=== PATIENT | male | born 1985 | race African-American/Black ===

== ENCOUNTER 2019-08-20 00:47 | Observation (INO) | payer SELFPAY ==
[2019-08-20] MEDS ORDERED: Aspirin 325 MG TAB ONE (01:03)
[2019-08-20] MEDS ORDERED: Nitroglycerin 0.4 MG TAB 1 EACH ONE (01:12)
[2019-08-20 01:13] LABS: #Basophils 0.2 thou/uL (0.0-0.2); #Eosinphils 0.2 thou/uL (0.0-0.7); #Lymphocytes 4.2 thou/uL (1.20-3.40); #Monocytes 0.7 thou/uL (0.11-0.59); #Neutrophils 4.1 thou/uL (1.40-6.50); %Basophils 2.3 % (0.0-1.0); %Eosinophils 2.1 % (0.0-10.0); %Lymphocytes 44.6 % (21.0-51.0); %Monocytes 7.1 % (0.0-10.0); Hemoglobin 15.5 g/dL (14.0-18.0); Mean Corpuscular HGB CONC 34.4 g/dL (32.0-36.0); Mean Corpuscular Hemoglobin 31.1 pg (27.0-31.0); Mean Corpuscular Volume 90.5 fL (78.0-98.0); Mean Platelet Volume 9.1 fL (7.4-10.4); Platelet Count 209 thou/uL (130-400); RBC Distribution Width 11.9 % (11.5-14.5); White Blood Cell (WBC) Count 9.4 thou/uL (4.8-10.8)
[2019-08-20 01:34] LABS: ALT (SGPT) 18 U/L (8-55); AST (SGOT) 16 U/L (5-34); Albumin 4.4 g/dL (3.5-5.0); Alkaline Phosphatase 91 U/L (40-110); Anion Gap 13 mmol/L (10-20); BUN (Urea Nitrogen) 8 mg/dL (8.9-20.6); Bilirubin, Total 0.5 mg/dL (0.2-1.2); Calc. Creatinine Clearance 0 mL/min (70-130); Calcium 9.5 mg/dL (7.8-10.44); Carbon Dioxide 25 mmol/L (22-29); Chloride 105 mmol/L (98-107); Estimated GFR-MDRD Greater than 90; Globulin 3.1 g/dL (2.4-3.5); Glucose 109 mg/dL (70-105); Potassium 3.7 mmol/L (3.5-5.1); Protein, Total 7.5 g/dL (6.0-8.3); Sodium 139 mmol/L (136-145)
[2019-08-20 01:36] LABS: Amphetamine Not Detected (NotDetected); Barbiturates Screen Not Detected (NotDetected); Benzodiazepine Screen Not Detected (NotDetected); Cocaine Metabolite Screen Not Detected (NotDetected); Medtox Control Line Valid? VALID (VALID); Medtox Reader # READER 4; Methadone Not Detected (NotDetected); Methamphetamine Not Detected (NotDetected); Opiate Screen Not Detected (NotDetected); Oxycodone Screen Not Detected (NotDetected); Phencyclidine (PCP) Not Detected (NotDetected); THC/Cannabinoid Screen Detected (NotDetected); Tricyclic Screen Not Detected (NotDetected)
--- NOTE | 2019-08-20 01:57 | PDOC.FPRHP ---
- History of Present Illness Chief Complaint: Chest Pain History of Present Illness: Patient is a 33 y/o male with no documented PMH who presents to the ED for evaluation of chest pain. The patient states that the pain is crushing in nature, substernal, with radiation and tingling down to his right arm. The pain has been relatively constant for the past 2 days. This type of pain has never happened before, and it is not relieved by position or rest. Associated symptoms include mild fatigue, blurry vision and SOB. Additionally, the patient admits to recent PND while lying flat at night, stating that he awakes several times each night with shortness of breath. Patient denies recent illness, sick contacts or travel, as well as headaches, epistaxis or rhinorrhea , peripheral edema, cough, N/V/D, ABD pain, new-onset rashes or lesions. 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 ED Course: The patient was evaluated in the ED and treated with 1L NS, Nitro, Aspirin 325 mg PO. - Allergies/Adverse Reactions Allergies Allergy/AdvReac Type Severity Reaction Status Date / Time No Known Allergies Allergy Verified 08/20/19 04:01 - Home Medications Medication Instructions Recorded Confirmed Type No Known 08/20/19 08/20/19 History - History PMHx: Migraines, Anxiety PSHx: None FHx: Mother - CHF ( at 60) Social: 1-1.5 PPD for 13 years, reports social alcohol use, reports occasional marijuana use Code: Full - Review of Systems General: reports: fatigue. denies: fever/chills Eyes: reports: vision changes (blurry vision). denies: eye pain ENT: denies: nasal congestion, rhinorrhea Respiratory: reports: shortness of breath. denies: cough Cardiovascular: reports: chest pain. denies: edema Gastrointestinal: denies: nausea, vomiting, abdominal pain Genitourinary: denies: incontinence, dysuria Skin: denies: rashes, lesions Musculoskeletal: reports: pain (R arm). denies: swelling Neurological: reports: numbness (in R hand). denies: syncope, weakness Psychological: reports: anxiety. denies: depression - Vital signs BP: 144/87 HR: 74 RR: 18 Tmax: 99.0 Pox: 99% on RA Wt: - Physical Exam Constitutional: NAD, awake, alert and oriented, well developed HEENT: normocephalic and atraumatic, PERRLA, EOMI, conjunctiva clear, grossly normal vision, grossly normal hearing, MMM Neck: supple, no LAD, no bruits Heart: RRR, normal S1/S2, no murmurs/rubs/gallops, pulses present, no edema Lungs: CTAB, no respiratory distress, good air movement, no rales/rhonchi, no wheezing Abdomen: soft, non-tender, bowel sounds present Musculoskeletal: normal structure, normal tone Neurological: no focal deficit, normal sensation Skin: good turgor, capillary refill <2 seconds Heme/Lymphatic: no unusual bruising or bleeding, no purpura Psychiatric: normal mood and affect, good judgment and insight, intact recent and remote memory FMR H&P: Results - Labs Result Diagrams: 08/20/19 06:59 08/20/19 06:59 Lab results: WBC 9.4 thou/uL (4.8-10.8) 08/20/19 01:05 Hgb 15.5 g/dL (14.0-18.0) 08/20/19 01:05 Hct 45.2 % (42.0-52.0) 08/20/19 01:05 MCV 90.5 fL (78.0-98.0) 08/20/19 01:05 Plt Count 209 thou/uL (130-400) 08/20/19 01:05 Neutrophils % 44.0 % (42.0-75.0) 08/20/19 01:05 Sodium 139 mmol/L (136-145) 08/20/19 01:05 Potassium 3.7 mmol/L (3.5-5.1) 08/20/19 01:05 Chloride 105 mmol/L (98-107) 08/20/19 01:05 Carbon Dioxide 25 mmol/L (22-29) 08/20/19 01:05 BUN 8 mg/dL (8.9-20.6) L 08/20/19 01:05 Creatinine 0.95 mg/dL (0.7-1.3) 08/20/19 01:05 Glucose 109 mg/dL (70-105) H 08/20/19 01:05 Calcium 9.5 mg/dL (7.8-10.44) 08/20/19 01:05 Total Bilirubin 0.5 mg/dL (0.2-1.2) 08/20/19 01:05 AST 16 U/L (5-34) 08/20/19 01:05 ALT 18 U/L (8-55) 08/20/19 01:05 Alkaline Phosphatase 91 U/L (40-110) 08/20/19 01:05 B-Natriuretic Peptide Less than 10.0 pg/mL (0-100) 08/20/19 01:05 Serum Total Protein 7.5 g/dL (6.0-8.3) 08/20/19 01:05 Albumin 4.4 g/dL (3.5-5.0) 08/20/19 01:05 - Radiology Interpretation Chest x-ray Status: image reviewed by me, report reviewed by me Additional comment: No acute process FMR H&P: A/P - Problem List (1) Chest pain Current Visit: Yes Status: Acute Code(s): R07.9 - CHEST PAIN, UNSPECIFIED (2) Elevated BP without diagnosis of hypertension Current Visit: Yes Status: Acute Code(s): R03.0 - ELEVATED BLOOD-PRESSURE READING, W/O DIAGNOSIS OF HTN (3) Marijuana abuse Current Visit: Yes Status: Acute Code(s): F12.10 - CANNABIS ABUSE, UNCOMPLICATED (4) Tobacco abuse Current Visit: Yes Status: Acute Code(s): Z72.0 - TOBACCO USE (5) Anxiety Current Visit: Yes Status: Acute Code(s): F41.9 - ANXIETY DISORDER, UNSPECIFIED (6) Migraine Current Visit: Yes Status: Acute Code(s): G43.909 - MIGRAINE, UNSP, NOT INTRACTABLE, WITHOUT STATUS MIGRAINOSUS - Plan Patient is a 33 y/o male who presents to the ED for evaluation of chest pain. 1. Atypical Chest Pain -Multiple cardiopulmonary symptoms w/o clear etiology -Pain partially relieved by Nitro -s/p 1L NS and ASA 325 mg PO -Extensive tobacco abuse and unknown PMH, as patient has no PCP -Trops: < 0.01 -BNP: < 10 -Mg: Pending -Phos: Pending -Fasting Lipid Profile -EKG: NSR -CXR: NAF -Heart Pathway: 1 -Will trend Trops -Consider additional testing based 2. Elevated BP w/o Diagnosis of HTN -BP: 144/87 on 08/20 -Patient does not currently take medication for elevated BP -Consider antihypertensive medication regimen if severe-range pressure occur 3. Anxiety, suspected -Patient admits to a Hx of Anxiety but denies ongoing CBT or medication -Patient denies increased stressors at work or home -Possible contributing factor to CP and SOB -Evaluate further following transfer to Telemetry Floor 4. Tobacco Abuse -Patient admits to a 1-1.5 PPD history for +10 years -Nicotine 21 mg Patch -Fusing Machine Tender on the importance of tobacco abuse cessation 5. Substance Abuse -Patient admits to MJ abuse, but denies cocaine, methamphetamines or IV drug use -UDS: +THC -Fusing Machine Tender on the importance of drug abuse cessation Code: Full Diet: NPO IVF: None VTE PPx: None Dispo: Patient is currently admitted to the Telemetry Floor for observation. Await timed Troponins and AM lab values. Consider additional testing and/or Cardiology consult based on results. Expected LOS < 48H. Disposition/LOS: Obs on tele LOS: likely less than 48 hours FMR H&P: Upper Level - Pertinent history 33 y/o M PMHx tobacco abuse presents to the ED for chest pain. He reports 2 days of chest pain that was substernal, squeezing pain. Radiated to R arm and resulted in R arm numbness. Reports some SOB and the symptoms were worse with movement, walking, and talking. Reports migraine headaches that improve with extra strength tylenol. Reports a h /o acid reflux, but this does not feel similar. Reports h/o anxiety and has had a panic attack remotely that felt different than this. - Pertinent findings BP: 144/87 HR: 74 RR: 18 Tmax: 99.0 Pox: 99% on RA PE: Gen - alert, oriented, NAD CV - RRR, no murmurs, no reproducible chest pain to palpation Lungs - CTAB, no wheezes Ext - no edema Labs: Trop < 0.010, BNP < 10 CXR: no acute process - Plan Date/Time: 08/20/19 0155 Ginger Mathew MD, PGY-3, have evaluated this patient and agree with findings/ plan as outlined by diversity intern resident. Pertinent changes/additions are listed here. 1. Chest Pain, atypical Heart score 1, improved with nitro. CXR, EKG, Trop negative. Suspect anxiety vs msk cause -Aspirin -Trend trops -FLP to risk stratify 2. Elevated BP without diagnosis of HTN -Monitor BP's -Encourage f/u with PCP 3. Tobacco Abuse -Fusing Machine Tender on cessation 4. Marijuana Abuse -Fusing Machine Tender on cessation 5. Anxiety Not on medication -Monitor and have pt f/u with PCP 6. Migraines -Tylenol prn Dispo: Obs on tele LOS: Likely less than 48 hours Addendum - Attending - Attending Attestation Date/Time: 08/20/19 0901 I personally evaluated the patient and discussed the management with the team. I agree with the History, Examination, Assessment and Plan documented above with any addition or exceptions noted below. Patient with atypical chest pain and quite young, we discussed discharge vs exercise stress and he prefers a stress.
[2019-08-20] MEDS ORDERED: Acetaminophen 325 MG TAB PO PRN (03:56)
[2019-08-20] MEDS ORDERED: Nitroglycerin 0.4 MG TAB (25 Tab Bottle) PO PRN (03:56)
[2019-08-20 04:08] VITALS: BMI 32.1
[2019-08-20 05:06] LABS: Troponin I Less than 0.010 ng/mL (< 0.028)
[2019-08-20 07:16] LABS: #Basophils 0.2 thou/uL (0.0-0.2); #Eosinphils 0.2 thou/uL (0.0-0.7); #Lymphocytes 4.3 thou/uL (1.20-3.40); #Monocytes 0.6 thou/uL (0.11-0.59); #Neutrophils 3.5 thou/uL (1.40-6.50); %Basophils 1.9 % (0.0-1.0); %Eosinophils 2.6 % (0.0-10.0); %Neutrophils 39.5 % (42.0-75.0); Hemoglobin 13.9 g/dL (14.0-18.0); Mean Corpuscular HGB CONC 33.9 g/dL (32.0-36.0); Mean Corpuscular Hemoglobin 30.8 pg (27.0-31.0); Mean Corpuscular Volume 90.8 fL (78.0-98.0); Platelet Count 192 thou/uL (130-400); RBC Distribution Width 11.9 % (11.5-14.5); Red Blood Cell (RBC) Count 4.51 mill/uL (4.70-6.10); White Blood Cell (WBC) Count 8.8 thou/uL (4.8-10.8)
[2019-08-20 07:26] LABS: Anion Gap 9 mmol/L (10-20); BUN (Urea Nitrogen) 8 mg/dL (8.9-20.6); Calc. Creatinine Clearance 156 mL/min (70-130); Calcium 8.9 mg/dL (7.8-10.44); Carbon Dioxide 26 mmol/L (22-29); Cardiac Risk 6.9 (Less than 4.5); Chloride 107 mmol/L (98-107); Cholesterol 186 mg/dl (< 200 Desired); Estimated GFR-MDRD Greater than 90; Glucose 92 mg/dL (70-105); HDL Cholesterol 27 mg/dL (>60 Neg Risk); LDL Cholesterol, Calculated 136 mg/dL; Magnesium 1.9 mg/dL (1.6-2.6); Phosphorus 3.4 mg/dL (2.3-4.7); Potassium 3.9 mmol/L (3.5-5.1); Sodium 138 mmol/L (136-145); Triglycerides 117 mg/dL (Less than 150)
[2019-08-20 07:31] LABS: Troponin I Less than 0.010 ng/mL (< 0.028)
[2019-08-20 08:16] VITALS: BP 116/77; TEMP 98.4
[2019-08-20] MEDS ORDERED: Famotidine/PF 20 mg/2ml Vial SLOW IVP SCH (09:00)
--- NOTE | 2019-08-20 09:06 | RAD ---
PORTABLE CHEST: Date: 08/20/2019 HISTORY: Chest pain and shortness of breath. FINDINGS: Heart size and mediastinum within normal limits. Lungs are clear of infiltrates. No bony findings. IMPRESSION: No active intrathoracic disease. POS: TPC
[2019-08-21] MEDS ORDERED: Aspirin 325 mg Enteric Coated Tablet PO SCH (09:00)
== END 2019-08-20 11:29 | disposition home or self-care (01) ==
LOC: ERS 00:47 → 2SW 03:46
PROVIDERS: ADMIT Family Medicine; ATTEND Family Medicine
DX: R07.89 Other chest pain (principal); R03.0 Elevated blood-pressure reading, without diagnosis of hypertension; F12.10 Cannabis abuse, uncomplicated; F17.210 Nicotine dependence, cigarettes, uncomplicated; G43.909 Migraine, unspecified, not intractable, without status migrainosus
CPT/HCPCS: 36415; 71045; 80053; 80061; 80306; 83735; 83880; 84100; 84484; 85025; 93005; 93017; 94760; 96360; 96361; 96374; G0378; S0028

== ENCOUNTER 2019-12-24 22:13 | Inpatient (IN) | payer SELFPAY ==
[2019-12-24 22:41] VITALS: BMI 32.0
[2019-12-24] MEDS ORDERED: Ondansetron ODT 4 MG TAB PO PRN (22:41)
[2019-12-24] MEDS ORDERED: Famotidine 20 MG TAB PO SCH (23:30)
[2019-12-24 23:33] LABS: Troponin I Less than 0.010 ng/mL (< 0.028)
--- NOTE | 2019-12-24 23:38 | PDOC.FPRHP ---
- History of Present Illness Chief Complaint: chest pain History of Present Illness: 34 y/o M with no known medical problems presents via direct admit for CP from an outside ER. He states he has been haivng CP for 3 days, constant, that is burning in character and radiates to the upper back. He was prompted to come in today because he noticed some swelling in his LE's this morning that was new. CP exacerbated by smoking and alleviated by not smoking. He c/o acid reflux and foul smelling belching. His abdomen has felt bbloated, but not painful. He was constipated this past week. Last BM yesterday , hard stools. c/o dry cough, denies fevers. Has been slightly dizzy the last few days. c/o anxiety that has worsened since the covid pandemic. He stays home and has not been out since today to go to the ER. ED course: Directly admitted from [facility]. Neg trops, and CXR CXR wnl. - Allergies/Adverse Reactions Allergies Allergy/AdvReac Type Severity Reaction Status Date / Time No Known Allergies Allergy Verified 08/20/19 04:01 - Home Medications Medication Instructions Recorded Confirmed Type No Known 08/20/19 12/24/19 History - History PMHx: no known medical problems PSHx: none FHx: father: CHF. Mother: CHF. Brother: Lymphoma age 30, undergoing treatment. Social: 15 pack year smoking hx. Trying to quit and smokes 1-2 cigarettes a day. drinks 1-2 glasses of cognac a week. denies illicit drug use. - Review of Systems General: denies: fever/chills Eyes: denies: vision changes ENT: denies: nasal congestion Respiratory: reports: cough, shortness of breath. denies: exercise intolerance Cardiovascular: reports: chest pain, edema. denies: palpitation, paroxysmal nocturnal dyspnea, orthopnea Gastrointestinal: reports: constipation, other (bloating). denies: nausea, vomiting, diarrhea, abdominal pain Skin: denies: rashes Musculoskeletal: reports: pain (upper back pain radiating from chest) Neurological: denies: seizure Psychological: reports: anxiety - Vital signs BP: 133/82 HR: 76 RR: 18 Tmax: 98.2 F Pox: 100% on ra Wt: 89 kg - Physical Exam Constitutional: NAD, awake, alert and oriented, well developed HEENT: normocephalic and atraumatic, PERRLA, EOMI, conjunctiva clear, no scleral icterus, grossly normal vision, grossly normal hearing, MMM Neck: supple, trachea midline, no JVD Heart: RRR, normal S1/S2, no murmurs/rubs/gallops, pulses present, other (sock line present on BLE) Lungs: CTAB, no respiratory distress, good air movement, no rales/rhonchi, no wheezing, no retractions Abdomen: soft, non-tender, bowel sounds present Musculoskeletal: normal structure, normal tone, ROM grossly normal Neurological: no focal deficit, normal sensation Skin: no rash/lesions, good turgor, capillary refill <2 seconds Heme/Lymphatic: no unusual bruising or bleeding Psychiatric: normal mood and affect, good judgment and insight, intact recent and remote memory FMR H&P: A/P - Problem List (1) Atypical chest pain Current Visit: Yes Status: Acute Code(s): R07.89 - OTHER CHEST PAIN (2) GERD (gastroesophageal reflux disease) Current Visit: Yes Status: Acute Code(s): K21.9 - GASTRO-ESOPHAGEAL REFLUX DISEASE WITHOUT ESOPHAGITIS (3) Anxiety Current Visit: No Status: Acute Code(s): F41.9 - ANXIETY DISORDER, UNSPECIFIED (4) Tobacco abuse Current Visit: No Status: Acute Code(s): Z72.0 - TOBACCO USE - Plan 34 y/o M admitted to tele obs for ACS rule out of atypical chest pain 1. Atypical Chest Pain - Heart score 2 - Trend trops, 12 lead EKG - Ddx: acs, GERD, MSK pain, angina, anxiety - ordered exercise stress test for AM - pt's pain improved with [facility]. Started famotidine PO - Started ASA. - Ordered FLP, A1C, and TSH - Will start statin if indicated - Will consult cards if stress test positive 2. GERD - Started Famotidine - could be contributing or primary cause of CP 3. Anxiety - Does not currently take any medications - Will discuss starting medication vs CBT and finding PCP upon d/c to help treat anxiety. code status: Full code Diet: NPO at midnight, HH after VTE ddx: scd's Dispo: stable, admit to tele obs, suspect <48 hr hx stay. FMR H&P: Upper Level - Plan Date/Time: 12/24/19 9361 I, Torin Darden DO, have evaluated this patient and agree with findings/plan as outlined by graphic design intern resident. Pertinent changes/additions are listed here. This is a 34 yo AA male with a pmh of anxiety and tobacco abuse who presents to the hospital from an outside ER with a cc of chest pain. He states he was in his usual state of health when he began having chest pain 3 days ago. He states the pain is throbbing in nature with some radiation to his right arm. He states the pain goes to his back as well. He reports some SOB associated with this as well as burping and bad taste in his mouth. He states the pain moves when he leans forward and goes away when he lays on his side. He states he smokes about 1.5 packs of cigarettes per day for the last 14 years. He reports a family history of CHF of which his parents of in their 50s. He is unsure of the cause of their CHF. Objective: General: NAD HEENT: MMM, AT/NC Cardio: RRR, no murmurs Resp: CTAB, no adventicious sounds Abdomen: Soft, BS+ A/P: Chest pain likely 2/2 GERD -Admit to tele obs -Trend troponins -Obtain EKG here -Reflux medications -Heart score of 1-2 depending on cause of familial CHF -CXR normal Anxiety Tobacco abuse -Encouraged cessation No PCP -Encouraged to follow up Code: Full Prophylaxis: Pepcid Family: None at bedside Fluids: SL Diet: regular Disposition: DC in 1-2 days PCP: None, encouraged follow up at [facility] - Attending - Attending Attestation Date/Time: 12/25/19 1013 I personally evaluated the patient and discussed the management with the team. I agree with the History, Examination, Assessment and Plan documented above with any addition or exceptions noted below. Accepted from [facility] ER. From handoff he had persistent chest pain that was not necessarily consistent with GERD, but on examination he clearly has GERD. I offered him a repeat Troponin and discharge and he declined. Will plan for exercise stress and almost certain discharge subsequently.
[2019-12-25 02:11] LABS: Troponin I 0.011 ng/mL (< 0.028)
[2019-12-25 04:43] LABS: Hemoglobin A1c 5.7 % (4.0-6.0)
[2019-12-25 04:54] LABS: Cardiac Risk 6.1 (Less than 4.5)
--- NOTE | 2019-12-25 07:15 | PDOC.FM ---
- Subjective Subjective: pt resting in bed reports chest pain improved. denies sob - Objective Vital Signs & Weight: Vital Signs (12 hours) Temp Pulse Resp BP BP Pulse Ox 12/25/19 03:30 98.0 F 71 18 131/72 99 12/24/19 22:20 98.2 F 76 18 133/82 133/82 100 Weight Weight 89.947 kg I&O: 12/24/19 12/25/19 12/26/19 06:59 06:59 06:59 Intake Total 240 Output Total 700 Balance -460 Phys Exam - Physical Examination Constitutional: NAD HEENT: moist MMs Neck: no JVD Respiratory: clear to auscultation bilateral Cardiovascular: RRR, no significant murmur Gastrointestinal: non-tender, no distention Musculoskeletal: no edema ttp over right chest Neurological: moves all 4 limbs Psychiatric: normal affect Dx/Plan (1) Atypical chest pain Code(s): R07.89 - OTHER CHEST PAIN Status: Acute (2) GERD (gastroesophageal reflux disease) Code(s): K21.9 - GASTRO-ESOPHAGEAL REFLUX DISEASE WITHOUT ESOPHAGITIS Status: Acute (3) Anxiety Code(s): F41.9 - ANXIETY DISORDER, UNSPECIFIED Status: Acute - Plan Plan: atypical Chest pain likely msk -trops neg, ekg wnl, cxr wnl -Heart score of 1-2 depending on cause of familial CHF - toradol Anxiety Tobacco abuse -Encouraged cessation No PCP -Encouraged to follow up Code: Full Disposition: DC Addendum - Attending - Attending Attestation Date/Time: 12/25/19 1035 I personally evaluated the patient and discussed the management with Dr. Moreira. I agree with the History, Examination, Assessment and Plan documented above with any addition or exceptions noted below. Low suspicion for ACS. Ruled on with enzymes. Recent normal exercise stress test. Discharge ready.
[2019-12-25 07:26] VITALS: TEMP 97.8
[2019-12-25] MEDS ORDERED: Ketorolac Tromethamine 30 MG/ML VIAL IVP SCH (08:30)
[2019-12-25] MEDS ORDERED: Aspirin 325 mg Enteric Coated Tablet PO SCH (09:00)
[2019-12-25] MEDS ORDERED: Famotidine 20 MG TAB PO SCH (09:00)
[2019-12-25 10:52] VITALS: BP 115/68
[2019-12-25] MEDS ORDERED: Atorvastatin Calcium 40 MG TAB PO SCH (21:00)
--- NOTE | 2019-12-26 04:13 | DIS ---
DATE OF ADMISSION: 12/24/2019 DATE OF DISCHARGE: 12/25/2019 CONSULTS: None. IMAGING: Chest x-ray, no acute intrathoracic process. DISCHARGE MEDICATIONS: 1. Atorvastatin 40 mg p.o. at bedtime. 2. Famotidine 20 mg p.o. daily. DISCHARGE DIAGNOSES: Primary diagnosis: Musculoskeletal chest pain. Secondary diagnoses: 1. Acid reflux. 2. Hyperlipidemia. 3. Tobacco abuse. HOSPITAL COURSE: The patient is a 34-year-old male who presents from an outside freestanding Emergency Department with a chief complaint of chest pain. He was a direct transfer to our facility for further workup. In our facility EKG was within normal limits. Troponins were negative x2. Chest x-ray was normal. The patient risk stratified and found to have elevated LDL with cholesterol, started on a statin. Chest pain is reproducible in nature and is described as sharp and over his right chest. The patient has no other risk factors for an ACS making his HEART score 1 or 2. Of note, the patient had an exercise treadmill stress test this August, which was negative. The patient deemed stable for discharge at this time as it is likely musculoskeletal in nature. Given information about lowering his cholesterol through diet and supportive care for musculoskeletal pain. DISCHARGE INSTRUCTIONS: Location: Home. Diet: Heart healthy. Activity: As tolerated. Follow up: Establish with Jennifer Ardon, DO [facility] in the next 3 to 7 days. Job ID: [id number] MTDD
--- NOTE | 2019-12-26 12:20 | EKG ---
Test Reason : Blood Pressure : / mmHG Vent. Rate : 067 BPM Atrial Rate : 067 BPM P-R Int : 166 ms QRS Dur : 100 ms QT Int : 386 ms P-R-T Axes : 051 002 029 degrees QTc Int : 407 ms Normal sinus rhythm with sinus arrhythmia Normal ECG When compared with ECG of 20-AUG-2019 00:57, No significant change was found Confirmed by BECCA MAC, DR. Bryan ([id number]) on 12/26/2019 12:20:05 PM Referred By: LAI Confirmed By:DR. Irvin HUDSON MD
== END 2019-12-25 10:50 | disposition home or self-care (01) | DRG 313 ==
LOC: 2NO 22:13
PROVIDERS: ADMIT Emergency Medicine; ATTEND Emergency Medicine
DX: R07.89 Other chest pain (principal); K21.9 Gastro-esophageal reflux disease without esophagitis; E78.5 Hyperlipidemia, unspecified; F17.210 Nicotine dependence, cigarettes, uncomplicated; F41.9 Anxiety disorder, unspecified
CPT/HCPCS: 36415; 80061; 83036; 84443; 84484; 93005; 93010; 94760; J1885